=== PATIENT | female | born 1995 | race Caucasian/White ===

== ENCOUNTER 2020-09-22 18:39 | Observation (INO) | payer BC ==
[~2020-09-22] VITALS: Ht 157.5 cm; Wt 70.3 kg
[2020-09-22 19:57] LABS: APPEARANCE,URINE Clear (CLEAR); BILIRUBIN,URINE Negative (NEGATIVE); COLOR,URINE Yellow (YELLOW); GLUCOSE, URINE (UA) Negative (NEGATIVE); KETONES,URINE Negative (NEGATIVE); LEUKOCYTE ESTERASE ,URINE Negative (NEGATIVE); NITRATE,URINE Negative (NEGATIVE); OCCULT BLOOD,URINE Negative (NEGATIVE); PROTEIN,URINE Negative (NEGATIVE)
[2020-09-22 20:05] LABS: AMPHET/METH SCREEN,URINE NEGATIVE (NEGATIVE); BARBITURATE SCREEN, URINE NEGATIVE (NEGATIVE); BENZODIAZEPINES SCREEN,URINE NEGATIVE (NEGATIVE); CANNABINOID SCREEN,URINE NEGATIVE (NEGATIVE); COCAINE SCREEN,URINE NEGATIVE (NEGATIVE); OPIATE SCREEN,URINE NEGATIVE (NEGATIVE); PHENCYCLIDINE SCREEN,URINE NEGATIVE (NEGATIVE)
== END 2020-09-22 20:30 | disposition home or self-care (01) ==
LOC: EDH 18:39 → LDH 19:02
PROVIDERS: ADMIT Obstetrics & Gynecology; ATTEND Obstetrics & Gynecology
DX: O26.892 Other specified pregnancy related conditions, second trimester (principal); R10.2 Pelvic and perineal pain; O99.891 Other specified diseases and conditions complicating pregnancy; M54.5 Low back pain; O99.512 Diseases of the respiratory system complicating pregnancy, second trimester; J45.909 Unspecified asthma, uncomplicated; Z87.59 Personal history of other complications of pregnancy, childbirth and the puerperium; Z98.82 Breast implant status; Z88.8 Allergy status to other drugs, medicaments and biological substances; Z3A.21 21 weeks gestation of pregnancy
CPT/HCPCS: 59025; 80305; 81003; 99283; G0378 ×2

== ENCOUNTER 2020-10-19 11:30 | Observation (INO) | payer BC ==
[2020-10-19 12:10] LABS: APPEARANCE,URINE CLEAR (CLEAR); BILIRUBIN,URINE NEGATIVE (NEGATIVE); COLOR,URINE YELLOW (YELLOW); GLUCOSE, URINE (UA) 100 mg/dL (NEGATIVE); KETONES,URINE NEGATIVE (NEGATIVE); LEUKOCYTE ESTERASE ,URINE NEGATIVE (NEGATIVE); NITRATE,URINE NEGATIVE (NEGATIVE); OCCULT BLOOD,URINE NEGATIVE (NEGATIVE); PROTEIN,URINE NEGATIVE (NEGATIVE); UROBILINOGEN,URINE 0.2 mg/dL (0.2-1.0)
[2020-10-19 12:37] LABS: BACTERIA,URINE Rare /HPF (None Seen); RBC,URINE None Seen /HPF (0-1); SQUAMOUS EPITHELIAL CELL,UR Few /HPF (0-2); WBC,URINE None Seen /HPF (0-1)
== END 2020-10-19 13:07 | disposition home or self-care (01) ==
LOC: EDH 11:30 → LDH 11:31
PROVIDERS: ADMIT Obstetrics & Gynecology; ATTEND Obstetrics & Gynecology
DX: O26.892 Other specified pregnancy related conditions, second trimester (principal); R07.81 Pleurodynia; R22.2 Localized swelling, mass and lump, trunk; O99.891 Other specified diseases and conditions complicating pregnancy; M79.89 Other specified soft tissue disorders; O99.512 Diseases of the respiratory system complicating pregnancy, second trimester; J45.909 Unspecified asthma, uncomplicated; Z98.82 Breast implant status; Z88.8 Allergy status to other drugs, medicaments and biological substances; Z3A.25 25 weeks gestation of pregnancy
CPT/HCPCS: 59025; 81001; 99283; G0378